=== PATIENT | male | born 1945 | race Caucasian/White ===

== ENCOUNTER 2021-05-06 05:00 | Day surgery (SDC) | payer OTHER ==
[2021-05-05 11:09] VITALS: BMI 30.9
[2021-05-06] MEDS ORDERED: DEXMEDETOMIDINE HCL 200 MCG/2 ML IVPB ONE (11:14)
[2021-05-06] MEDS ORDERED: ACETAMINOPHEN INJECTION 100 ML IVPB ONE (11:14)
[2021-05-06] MEDS ORDERED: LIDOCAINE HCL 1%, 10 MG/ML (20ML VIAL) ONE (11:20)
[2021-05-06] MEDS ORDERED: BUPIVACAINE HCL/PF 0.25% (2.5MG/ML) 10 ML VIAL ONE (11:20)
[2021-05-06] MEDS ORDERED: LIDOCAINE HCL 1%, 10 MG/ML (20ML VIAL) INF ONE (11:38)
[2021-05-06] MEDS ORDERED: BUPIVACAINE HCL/PF 0.25% (2.5MG/ML) 10 ML VIAL IJ ONE (11:39)
[2021-05-06] MEDS ORDERED: GABAPENTIN 100 MG CAPSULE PO SCH (14:00)
[2021-05-06] MEDS ORDERED: IBUPROFEN 600 MG TABLET (FP) PO SCH (14:00)
[2021-05-06 15:03] VITALS: TEMP 97.2
[2021-05-06 15:07] VITALS: BP 130/71; PULSE 72
[2021-05-06] MEDS ORDERED: ECONAZOLE NITRATE TD SCH (22:00)
[2021-05-06] MEDS ORDERED: risperiDONE 0.25 MG TABLET PO SCH (22:00)
[2021-05-07] MEDS ORDERED: LEVOTHYROXINE NA 125 MCG TABLET (FP) PO SCH (07:00)
[2021-05-07] MEDS ORDERED: ASCORBIC ACID 500 MG TABLET (FP) PO SCH (10:00)
[2021-05-07] MEDS ORDERED: CYANOCOBALAMIN 1,000 MCG TABLET (FP) PO SCH (10:00)
[2021-05-07] MEDS ORDERED: CITALOPRAM HYDROBROMIDE 20 MG TABLET PO SCH (10:00)
[2021-05-07] MEDS ORDERED: FUROSEMIDE 40 MG TABLET (FP) PO SCH (10:00)
[2021-05-07] MEDS ORDERED: LOSARTAN POTASSIUM 50 MG TABLET PO SCH (10:00)
[2021-05-07] MEDS ORDERED: PANTOPRAZOLE 20 MG TABLET PO SCH (10:00)
[2021-05-07] MEDS ORDERED: DOCUSATE SODIUM 100 MG CAPSULE (FP) PO SCH (10:00)
[2021-05-13] MEDS ORDERED: ERGOCALCIFEROL (VIT D2) 50,000 UNIT (1.25 MG) CAPSULE PO SCH (10:00)
== END 2021-05-06 14:34 | disposition home or self-care (01) ==
LOC: JASU-SURG 05:00
PROVIDERS: ATTEND Podiatrist Foot & Ankle Surgery
PROC: 0SNP0ZZ Release Right Toe Phalangeal Joint, Open Approach (ICD-10-PCS; 2021-05-06)
PROC: 0SRP0JZ Replacement of Right Toe Phalangeal Joint with Synthetic Substitute, Open Approach (ICD-10-PCS; principal; 2021-05-06 12:00)
DX: M20.41 Other hammer toe(s) (acquired), right foot (principal)
CPT/HCPCS: 88304-TC; 88311-TC; J0131

== ENCOUNTER 2022-08-12 03:04 | Inpatient (IN) | payer OTHER ==
[2022-08-12 03:33] VITALS: BMI 30.7
[2022-08-12] MEDS ORDERED: FAMOTIDINE 20 MG/50 ML IVPB 20 MG/50 ML MG IVPB ONE ×2 (03:45→03:49)
[2022-08-12 04:32] LABS: BASO % 0.5 % (0-2.0); EOS % 1.7 % (0-4.5); HEMATOCRIT 38.9 % (35.4-49); HEMOGLOBIN 13.3 GM/dL (11.7-16.9); LYMPH % 10.6 % (8-40); MCH 32.1 pg (25.7-33.7); MCHC 34.3 g/dl (32.0-35.9); MEAN CELL VOLUME 93.8 fl (80-96); MEAN PLT VOLUME 7.7 fl (7.5-11.1); MONO % 8.1 % (3.8-10.2); NEUT % 79.1 % (42.8-82.8); PLATELET COUNT 227 10^3/uL (134-434); RBC 4.15 M/mm3 (4.00-5.60); RDW 14.7 % (11.9-15.9); WHITE BLOOD COUNT 8.5 K/mm3 (4.0-10.0)
[2022-08-12 04:39] LABS: PROTHROMBIN TIME (PATIENT) 11.5 SEC (9.7-13.0)
[2022-08-12 04:42] LABS: ACTIVATED PTT 35.2 SECONDS (25.2-36.5)
[2022-08-12 04:54] LABS: ALBUMIN 3.6 g/dl (3.4-5.0); BLOOD UREA NITROGEN 19.9 mg/dL (7-18)
[2022-08-12 04:57] LABS: CREATININE 0.9 mg/dL (0.55-1.3)
[2022-08-12 04:58] LABS: BILIRUBIN,TOTAL 0.5 mg/dL (0.2-1); N-TERMINAL BNP 120.9 pg/ml (5-450); TOT PROT 6.6 g/dl (6.4-8.2)
[2022-08-12] MEDS ORDERED: MAG HYDROX/AL HYDROX/SIMETH -MYLANTA- ORAL SUSPENSION PO ONE (05:30)
[2022-08-12] MEDS ORDERED: MAG HYDROX/AL HYDROX/SIMETH 30 ML UNIT-DOSE CUP ONE (06:21)
[2022-08-12] MEDS ORDERED: SODIUM CHLORIDE 1,000 ML IV STA (11:04)
[2022-08-12] MEDS ORDERED: CEFTRIAXONE 1,000 MG in DEXTROSE 5%-WATER - 50 ML IVPB ONE (11:08)
[2022-08-12] MEDS ORDERED: CEFTRIAXONE 1 GM/50 ML BAG ONE (11:48)
[2022-08-12] MEDS ORDERED: ACETAMINOPHEN INJECTION 100 ML IVPB ONE (19:34)
[2022-08-12] MEDS: ACETAMINOPHEN 1000 MG/100 ML BAG IVPB PRN (19:36)
[2022-08-12] MEDS: LACTATED RINGERS SOLUTION 1,000 ML IV SCH (19:36)
[2022-08-13] MEDS ORDERED: ACETAMINOPHEN INJECTION 100 ML IVPB ONE (02:36)
[2022-08-13] MEDS: ACETAMINOPHEN 1000 MG/100 ML BAG IVPB PRN (02:40)
[2022-08-13 07:38] LABS: BASO % 0.6 % (0-2.0); EOS % 0.8 % (0-4.5); HEMATOCRIT 40.2 % (35.4-49); HEMOGLOBIN 13.7 GM/dL (11.7-16.9); LYMPH % 9.4 % (8-40); MCHC 34.1 g/dl (32.0-35.9); MEAN PLT VOLUME 7.5 fl (7.5-11.1); MONO % 9.7 % (3.8-10.2); NEUT % 79.5 % (42.8-82.8); PLATELET COUNT 216 10^3/uL (134-434); RBC 4.27 M/mm3 (4.00-5.60); RDW 14.5 % (11.9-15.9); WHITE BLOOD COUNT 6.2 K/mm3 (4.0-10.0)
[2022-08-13 07:47] LABS: BLOOD UREA NITROGEN 15.3 mg/dL (7-18); CALCIUM 8.5 mg/dL (8.5-10.1)
[2022-08-13 07:48] LABS: ALBUMIN 3.5 g/dl (3.4-5.0)
[2022-08-13 07:49] LABS: PHOSPHOROUS 3.1 mg/dL (2.5-4.9)
[2022-08-13 07:51] LABS: BILIRUBIN,TOTAL 0.7 mg/dL (0.2-1); TOT PROT 6.4 g/dl (6.4-8.2)
[2022-08-13 08:18] LABS: INR 1.1 (0.83-1.09); PROTHROMBIN TIME (PATIENT) 12.7 SEC (9.7-13.0)
[2022-08-13 08:20] LABS: ACTIVATED PTT 34.2 SECONDS (25.2-36.5)
[2022-08-13] MEDS: PANTOPRAZOLE SODIUM 40 MG VIAL IVPB SCH (09:20)
[2022-08-13] MEDS: ENOXAPARIN NA (PORCINE) 40 MG/0.4 ML DISP.SYRIN SQ SCH (09:20)
[2022-08-13] MEDS ORDERED: CEFTRIAXONE 1,000 MG in DEXTROSE 5%-WATER - 50 ML IVPB SCH (10:00)
[2022-08-13] MEDS ORDERED: PANTOPRAZOLE SODIUM 40 MG in SODIUM CHLORIDE 100 ML IVPB SCH (10:00)
[2022-08-13] MEDS: CEFTRIAXONE 1 GM in DEXTROSE 5%-WATER - 50 ML IVPB SCH (10:17)
[2022-08-13] MEDS: LACTATED RINGERS SOLUTION 1,000 ML IV SCH (20:55)
[2022-08-13] MEDS: GABAPENTIN 100 MG CAPSULE PO SCH (22:02)
[2022-08-13] MEDS: risperiDONE 0.25 MG TABLET PO SCH (22:02)
[2022-08-13] MEDS: DOCUSATE SODIUM 100 MG CAPSULE (FP) PO SCH (22:17)
[2022-08-14] MEDS: GABAPENTIN 100 MG CAPSULE PO SCH ×3 (06:57→21:51)
[2022-08-14] MEDS: LEVOTHYROXINE NA 125 MCG TABLET (FP) PO SCH (07:00)
[2022-08-14 08:53] LABS: BASO % 0.5 % (0-2.0); HEMATOCRIT 39.6 % (35.4-49); HEMOGLOBIN 13.1 GM/dL (11.7-16.9); LYMPH % 13.7 % (8-40); MCH 30.6 pg (25.7-33.7); MEAN CELL VOLUME 92.5 fl (80-96); MEAN PLT VOLUME 7.9 fl (7.5-11.1); MONO % 12.4 % (3.8-10.2); NEUT % 71.4 % (42.8-82.8); PLATELET COUNT 228 10^3/uL (134-434); RBC 4.28 M/mm3 (4.00-5.60); RDW 14.5 % (11.9-15.9); WHITE BLOOD COUNT 6.5 K/mm3 (4.0-10.0)
[2022-08-14 09:24] LABS: CALCIUM 8.4 mg/dL (8.5-10.1)
[2022-08-14 09:25] LABS: ALBUMIN 3.3 g/dl (3.4-5.0); BLOOD UREA NITROGEN 12.7 mg/dL (7-18); MAGNESIUM 2.2 mg/dL (1.8-2.4)
[2022-08-14 09:28] LABS: CREATININE 0.8 mg/dL (0.55-1.3)
[2022-08-14 09:30] LABS: TOT PROT 6.1 g/dl (6.4-8.2)
[2022-08-14 09:46] LABS: BILIRUBIN,TOTAL 0.5 mg/dL (0.2-1)
[2022-08-14] MEDS: PANTOPRAZOLE SODIUM 40 MG VIAL IVPB SCH (10:48)
[2022-08-14] MEDS: CEFTRIAXONE 1 GM in DEXTROSE 5%-WATER - 50 ML IVPB SCH (10:48)
[2022-08-14] MEDS: ENOXAPARIN NA (PORCINE) 40 MG/0.4 ML DISP.SYRIN SQ SCH (10:48)
[2022-08-14] MEDS: risperiDONE 0.25 MG TABLET PO SCH ×2 (10:48→21:51)
[2022-08-14] MEDS: CYANOCOBALAMIN 1,000 MCG TABLET (FP) PO SCH (10:53)
[2022-08-14] MEDS: FUROSEMIDE 40 MG TABLET (FP) PO SCH (10:53)
[2022-08-14] MEDS: CITALOPRAM HYDROBROMIDE 20 MG TABLET PO SCH (10:53)
[2022-08-14] MEDS: LOSARTAN POTASSIUM 50 MG TABLET PO SCH (10:53)
[2022-08-14] MEDS: DOCUSATE SODIUM 100 MG CAPSULE (FP) PO SCH (21:51)
[2022-08-15] MEDS: GABAPENTIN 100 MG CAPSULE PO SCH ×3 (06:00→21:00)
[2022-08-15] MEDS: LEVOTHYROXINE NA 125 MCG TABLET (FP) PO SCH (06:00)
[2022-08-15 08:19] LABS: BASO % 0.6 % (0-2.0); EOS % 2.3 % (0-4.5); HEMOGLOBIN 12.9 GM/dL (11.7-16.9); LYMPH % 12.3 % (8-40); MCHC 33.2 g/dl (32.0-35.9); MEAN CELL VOLUME 93.5 fl (80-96); MONO % 12.4 % (3.8-10.2); NEUT % 72.4 % (42.8-82.8); PLATELET COUNT 225 10^3/uL (134-434); RBC 4.17 M/mm3 (4.00-5.60); RDW 14.7 % (11.9-15.9)
[2022-08-15 08:40] LABS: CALCIUM 8.4 mg/dL (8.5-10.1)
[2022-08-15 08:41] LABS: ALBUMIN 3.1 g/dl (3.4-5.0)
[2022-08-15 08:44] LABS: CREATININE 0.8 mg/dL (0.55-1.3)
[2022-08-15 08:45] LABS: TOT PROT 5.7 g/dl (6.4-8.2)
[2022-08-15 08:46] LABS: BILIRUBIN,TOTAL 0.5 mg/dL (0.2-1)
[2022-08-15] MEDS: LOSARTAN POTASSIUM 50 MG TABLET PO SCH (11:06)
[2022-08-15] MEDS: CYANOCOBALAMIN 1,000 MCG TABLET (FP) PO SCH (11:06)
[2022-08-15] MEDS: risperiDONE 0.25 MG TABLET PO SCH ×2 (11:06→21:01)
[2022-08-15] MEDS: CEFTRIAXONE 1 GM in DEXTROSE 5%-WATER - 50 ML IVPB SCH (11:06)
[2022-08-15] MEDS: CITALOPRAM HYDROBROMIDE 20 MG TABLET PO SCH (11:06)
[2022-08-15] MEDS: FUROSEMIDE 40 MG TABLET (FP) PO SCH (11:06)
[2022-08-15] MEDS: ENOXAPARIN NA (PORCINE) 40 MG/0.4 ML DISP.SYRIN SQ SCH (11:07)
[2022-08-15] MEDS: PANTOPRAZOLE SODIUM 40 MG VIAL IVPB SCH (13:11)
[2022-08-15] MEDS: ATORVASTATIN CA 10 MG TABLET (FP) PO SCH (21:01)
[2022-08-15] MEDS: DOCUSATE SODIUM 100 MG CAPSULE (FP) PO SCH (21:09)
[2022-08-16] MEDS: LEVOTHYROXINE NA 125 MCG TABLET (FP) PO SCH (06:15)
[2022-08-16] MEDS: GABAPENTIN 100 MG CAPSULE PO SCH ×3 (06:15→22:07)
[2022-08-16 06:57] LABS: BASO % 0.5 % (0-2.0); EOS % 1.8 % (0-4.5); HEMATOCRIT 41.5 % (35.4-49); HEMOGLOBIN 13.7 GM/dL (11.7-16.9); LYMPH % 10.8 % (8-40); MCH 30.9 pg (25.7-33.7); MCHC 33.1 g/dl (32.0-35.9); MEAN CELL VOLUME 93.5 fl (80-96); MEAN PLT VOLUME 8.2 fl (7.5-11.1); MONO % 12.2 % (3.8-10.2); NEUT % 74.7 % (42.8-82.8); PLATELET COUNT 253 10^3/uL (134-434); RBC 4.44 M/mm3 (4.00-5.60); RDW 14.6 % (11.9-15.9); WHITE BLOOD COUNT 7.9 K/mm3 (4.0-10.0)
[2022-08-16 07:18] LABS: ALBUMIN 3.3 g/dl (3.4-5.0); BLOOD UREA NITROGEN 11.2 mg/dL (7-18); CALCIUM 8.7 mg/dL (8.5-10.1); MAGNESIUM 1.8 mg/dL (1.8-2.4)
[2022-08-16 07:21] LABS: CREATININE 0.9 mg/dL (0.55-1.3)
[2022-08-16 07:23] LABS: BILIRUBIN,TOTAL 0.8 mg/dL (0.2-1); TOT PROT 6.2 g/dl (6.4-8.2)
[2022-08-16 08:48] VITALS: RESP 18
[2022-08-16] MEDS: PANTOPRAZOLE SODIUM 40 MG VIAL IVPB SCH (10:05)
[2022-08-16] MEDS: CEFTRIAXONE 1 GM in DEXTROSE 5%-WATER - 50 ML IVPB SCH (10:06)
[2022-08-16] MEDS: LOSARTAN POTASSIUM 50 MG TABLET PO SCH (10:06)
[2022-08-16] MEDS: ENOXAPARIN NA (PORCINE) 40 MG/0.4 ML DISP.SYRIN SQ SCH (10:07)
[2022-08-16] MEDS: FUROSEMIDE 40 MG TABLET (FP) PO SCH (10:07)
[2022-08-16] MEDS: risperiDONE 0.25 MG TABLET PO SCH ×2 (10:08→22:07)
[2022-08-16] MEDS: CYANOCOBALAMIN 1,000 MCG TABLET (FP) PO SCH (10:08)
[2022-08-16] MEDS: CITALOPRAM HYDROBROMIDE 20 MG TABLET PO SCH (10:09)
[2022-08-16 10:57] LABS: PHOSPHOROUS 2.8 mg/dL (2.5-4.9)
[2022-08-16] MEDS: DOCUSATE SODIUM 100 MG CAPSULE (FP) PO SCH (22:07)
[2022-08-16] MEDS: ATORVASTATIN CA 10 MG TABLET (FP) PO SCH (22:07)
[2022-08-16 22:40] VITALS: BP 155/71; PULSE 85; TEMP 98.7
== END 2022-08-16 22:30 | DRG 444 ==
LOC: JER 03:04 → JERBED 12:52 → J4S 08-13 07:57
PROVIDERS: ADMIT Internal Medicine; ATTEND Nurse Practitioner Acute Care
DX: K80.20 Calculus of gallbladder without cholecystitis without obstruction (principal); U07.1 COVID-19; N20.1 Calculus of ureter; I10 Essential (primary) hypertension; E78.5 Hyperlipidemia, unspecified; E03.9 Hypothyroidism, unspecified; E66.9 Obesity, unspecified; Z68.30 Body mass index [BMI] 30.0-30.9, adult; K21.9 Gastro-esophageal reflux disease without esophagitis; R07.89 Other chest pain; K59.00 Constipation, unspecified; K42.9 Umbilical hernia without obstruction or gangrene; I49.3 Ventricular premature depolarization; N28.1 Cyst of kidney, acquired; K76.0 Fatty (change of) liver, not elsewhere classified; N20.0 Calculus of kidney; R16.0 Hepatomegaly, not elsewhere classified
CPT/HCPCS: 36415; 71045-TC-FY; 74177-TC; 76705-TC; 80053; 80061; 83690; 83735; 83880; 84100; 84439; 84443; 84484; 85025; 85027; 85610; 85730; 86140; 86850; 86900; 86901; 93005; 93010; 93306-TC; 93970-TC; 97116-GP; 97161-GP; 99285-25; C9803-CS; Q9967; U0003; U0005